=== PATIENT | male | born 1955 | race Caucasian/White ===

== ENCOUNTER 2022-06-11 16:14 | Emergency (ER) | payer BC, OTHER ==
[~2022-06-11] VITALS: Ht 188 cm; Wt 77.6 kg
--- NOTE | 2022-06-11 16:25 | NUR ---
BIBFAMILY C/O BILATERAL WRISTS LACERATION S/P FALL FROM LADDER. PT VITALS ARE WITHIN NORMAL LIMITS. DENIES LOC AND BT. AWAITING MD ORDERS.
[2022-06-11] MEDS ORDERED: LIDOCAINE HCL/PF 1% 30 ML SDV ONE (16:47)
[2022-06-11] MEDS ORDERED: ACETAMINOPHEN 325 MG TABLET PO ONE (18:00)
--- NOTE | 2022-06-11 18:15 | NUR ---
TECH AT BEDSIDE FOR WOUND CARE
--- NOTE | 2022-06-11 18:20 | NUR ---
PT REQUESTED FOR TYLENOL PO; DR QUIJANO MADE AWARE W/ ORDER FOR TYLENOL 650MG NOTED.
[2022-06-11 18:23] VITALS: BP 115/46
[2022-06-11] MEDS ORDERED: ACETAMINOPHEN 325 MG TABLET ONE (18:26)
--- NOTE | 2022-06-11 18:28 | NUR ---
Patient discharged to home in stable condition. Written and verbal after care instructions given. Patient verbalizes understanding of instruction.
== END 2022-06-11 18:23 | disposition home or self-care (01) ==
LOC: ER 16:18
DX: S51.812A Laceration without foreign body of left forearm, initial encounter (principal); S51.811A Laceration without foreign body of right forearm, initial encounter; F17.200 Nicotine dependence, unspecified, uncomplicated; W11.XXXA Fall on and from ladder, initial encounter; Y93.89 Activity, other specified; Y92.89 Other specified places as the place of occurrence of the external cause; Y99.8 Other external cause status
CPT/HCPCS: 99282; 12004; A6403; J3490